=== PATIENT | male | born 1955 | race Caucasian/White ===

== ENCOUNTER 2017-02-03 11:52 | Inpatient (IN) | payer MEDICARE, MEDICAID ==
[~2017-02-03] VITALS: Ht 167.6 cm; Wt 66.5 kg
[~2017-02-03 11:52] MED LIST: DIVA500T35 PO; RISP3 PO
[2017-02-03 12:29] LABS: BASOPHILS % (AUTO) 0.9 % (0.0-2.0); EOSINOPHILS # (AUTO) 0.07 K/uL (0.00-0.70); EOSINOPHILS % (AUTO) 0.59 % (1.0-6.0); HEMATOCRIT 40.3 % (41-53); LYMPHOCYTES % (AUTO) 16.4 % (22.0-44.0); MEAN CORPUSCULAR HEMOGLOBIN 28.3 pg (26.0-34.0); MEAN CORPUSCULAR HGB CONC 32.2 G/dL (31.0-37.0); MEAN CORPUSCULAR VOLUME 88 fL (80-100); MONOCYTES # (AUTO) 1.1 K/uL (0.1-1.0); MONOCYTES % (AUTO) 9.4 % (2.0-9.0); NEUTROPHILS # (AUTO) 8.9 K/uL (1.8-7.7); NEUTROPHILS % (AUTO) 72.8 % (40.0-70.0); PLATELET COUNT (AUTO) 459 K/uL (150-450); RED BLOOD CELL COUNT(AUTO) 4.59 MIL/uL (4.50-5.90); RED CELL DISTRIBUTION WIDTH 15.1 % (11.5-14.5); WHITE BLOOD COUNT (AUTO) 12.2 K/uL (4.5-11.0)
[2017-02-03 12:42] LABS: ANION GAP 10 mmol/L (8-16); CALCIUM, TOTAL 9.4 mg/dL (8.8-10.5); CARBON DIOXIDE 26 mmol/L (22-29); CHLORIDE 101 mmol/L (98-107); GLOMERULAR FILTR. RATE CALC > 60 mL/min (>60); POTASSIUM 3.8 mmol/L (3.5-5.1); SODIUM SERUM 137 mmol/L (136-145); UREA NITROGEN, BLOOD 22 mg/dL (7-18)
[2017-02-03 12:47] LABS: ALANINE AMINOTRANSFERASE 41 U/L (12-78); ALBUMIN 4.3 g/dL (3.4-5.0); ASPARTATE AMINOTRANSFERASE 48 U/L (15-37); BILIRUBIN,TOTAL 0.6 mg/dL (0.1-1.0); TOTAL PROTEIN, SERUM 8.6 g/dL (6.4-8.2); VALPROIC ACID < 3 mcg/mL (50-100)
[2017-02-03] MEDS ORDERED: LORazepam 2 MG TABLET PO ONE (13:45)
[2017-02-03] MEDS ORDERED: HALOPERIDOL 5 MG TABLET PO ONE (13:45)
[2017-02-03] MEDS ORDERED: HALOPERIDOL 5 MG TABLET PO PRN (16:30)
[2017-02-03] MEDS ORDERED: ZOLPIDEM TARTRATE 10 MG TABLET PO PRN (16:30)
[2017-02-03] MEDS ORDERED: LORazepam 2 MG TABLET PO PRN (16:30)
[2017-02-03 18:11] VITALS: BP 123/71
[2017-02-03] MEDS ORDERED: INFLUENZA VIRUS VACCINE QVS 2017-18 (3YR+)/PF 60 MCG/0.5 ML SYRINGE IM ONE (18:45)
[2017-02-03] MEDS ORDERED: ACETAMINOPHEN 325 MG TABLET PO PRN (21:30)
[2017-02-04 03:14] VITALS: BP 131/71
[2017-02-04] MEDS: RisperiDONE 3 MG TABLET PO SCH ×2 (08:49→16:38)
[2017-02-04] MEDS: DIVALPROEX SODIUM 500 MG DR TABLET PO SCH ×2 (08:49→16:38)
[2017-02-04 09:05] LABS: CHOL/HDL RATIO 2.2 (4.2-7.3); THYROID STIMULATING HORMONE 0.34 uIU/mL (0.36-3.74)
[2017-02-04 09:26] VITALS: BP 114/67
[2017-02-04 16:07] VITALS: BP 120/62
[2017-02-05 00:01] VITALS: BP 125/70
[2017-02-05 08:15] VITALS: BP 122/66
[2017-02-05 08:39] LABS: BASOPHILS % (AUTO) 0.4 % (0.0-2.0); EOSINOPHILS % (AUTO) 0.7 % (1.0-6.0); HEMATOCRIT 36.8 % (41-53); HEMOGLOBIN 12.5 g/dL (13.5-17.5); LYMPHOCYTES # (AUTO) 1.7 K/uL (1.0-4.8); LYMPHOCYTES % (AUTO) 19.3 % (22.0-44.0); MEAN CORPUSCULAR HEMOGLOBIN 29.8 pg (26.0-34.0); MEAN CORPUSCULAR HGB CONC 33.9 G/dL (31.0-37.0); MEAN CORPUSCULAR VOLUME 88 fL (80-100); MONOCYTES # (AUTO) 0.8 K/uL (0.1-1.0); NEUTROPHILS # (AUTO) 6.1 K/uL (1.8-7.7); NEUTROPHILS % (AUTO) 70.6 % (40.0-70.0); PLATELET COUNT (AUTO) 405 K/uL (150-450); RED BLOOD CELL COUNT(AUTO) 4.19 MIL/uL (4.50-5.90); RED CELL DISTRIBUTION WIDTH 15.3 % (11.5-14.5); WHITE BLOOD COUNT (AUTO) 8.6 K/uL (4.5-11.0)
[2017-02-05] MEDS: DIVALPROEX SODIUM 500 MG DR TABLET PO SCH ×2 (08:43→16:33)
[2017-02-05] MEDS: RisperiDONE 3 MG TABLET PO SCH ×2 (08:43→16:34)
[2017-02-05 16:00] VITALS: BP 111/63
[2017-02-06 02:00] VITALS: BP 113/69
[2017-02-06 08:18] VITALS: BP 117/63
[2017-02-06] MEDS: RisperiDONE 3 MG TABLET PO SCH ×2 (08:18→16:23)
[2017-02-06] MEDS: DIVALPROEX SODIUM 500 MG DR TABLET PO SCH ×2 (08:18→16:23)
[2017-02-06 16:00] VITALS: BP 118/78
[2017-02-07 00:45] VITALS: BP 122/65
[2017-02-07 08:09] VITALS: BP 127/72
[2017-02-07] MEDS: RisperiDONE 3 MG TABLET PO SCH ×2 (08:13→16:12)
[2017-02-07] MEDS: DIVALPROEX SODIUM 500 MG DR TABLET PO SCH ×2 (08:13→16:12)
[2017-02-07 16:08] VITALS: BP 122/60
[2017-02-07] MEDS: IBUPROFEN 400 MG TABLET PO PRN (16:12)
[2017-02-08 02:03] VITALS: BP 118/70
[2017-02-08] MEDS: DIVALPROEX SODIUM 500 MG DR TABLET PO SCH (08:11)
[2017-02-08] MEDS: RisperiDONE 3 MG TABLET PO SCH (08:11)
[2017-02-08] MEDS: IBUPROFEN 400 MG TABLET PO PRN (08:31)
[2017-02-08 08:35] VITALS: BP_SYST 123
[2017-02-08 11:03] VITALS: BP 116/78
== END 2017-02-08 14:40 | disposition home or self-care (01) | DRG 885 ==
LOC: EEVIPCON 11:53 → EMS 11:53 → B2X 16:42
PROVIDERS: ADMIT Psychiatry & Neurology Psychiatry; ATTEND Psychiatry & Neurology Psychiatry
PROC: 3E0234Z Introduction of Serum, Toxoid and Vaccine into Muscle, Percutaneous Approach (ICD-10-PCS; principal; 2017-02-03)
DX: F20.0 Paranoid schizophrenia (principal); R74.0 Nonspecific elevation of levels of transaminase and lactic acid dehydrogenase [LDH]; F12.90 Cannabis use, unspecified, uncomplicated; F19.10 Other psychoactive substance abuse, uncomplicated; R00.0 Tachycardia, unspecified; F32.9 Major depressive disorder, single episode, unspecified; Z23 Encounter for immunization
CPT/HCPCS: 84439; 84443; 90471; 99285; G0480